=== PATIENT | female | born 1975 | race Caucasian/White ===

== ENCOUNTER 2020-05-20 10:43 | Emergency (ER) | payer OTHER, SELFPAY ==
[2020-05-20 10:56] VITALS: BP 127/83; PULSE 87; RESP 20; TEMP 36.6; O2SAT 98
--- NOTE | 2020-05-20 11:07 | ED.ANXIETY ---
HPI - Anxiety General Chief Complaint: Anxiety Stated Complaint: anxiety Source: patient Mode of arrival: ambulatory Limitations: no limitations History of Present Illness HPI narrative: Patient is a 45-year-old female who presents complaining of anxiety and restlessness starting this a.m. She reports she has a history of anxiety and has had for 30+ years. She reports she takes multiple antianxiety/antidepressants. She reports taking 1.5 mg of lorazepam prior to arrival. She reports a fluttering and tingling sensation throughout her body and mild shortness of breath. She reports she had Covid approximately 1 month ago but has been fully recovered. She denies chest pain. She denies all other complaints. MD complaint: anxiety Related Data Home Medications Medication Instructions Recorded Confirmed bupropion HCl 150 mg PO DAILY 05/20/20 05/20/20 citalopram 40 mg DAILY 05/20/20 05/20/20 hydroxyzine pamoate 25 mg TID 05/20/20 05/20/20 lorazepam 1 mg BID 05/20/20 05/20/20 Allergies Allergy/AdvReac Type Severity Reaction Status Date / Time No Known Allergies Allergy Verified 05/20/20 11:03 Review of Systems Review of Systems: Narrative: CONSTITUTIONAL: Denies fever, chills, or sweats. EYES: Denies visual changes, redness, or discharge. ENT: Denies rhinorrhea, congestion, sore throat, or otalgia. CARDIOVASCULAR: Denies chest pain, palpitations, or edema. RESPIRATORY: Denies cough or dyspnea. GASTROINTESTINAL: Denies abdominal pain, nausea, vomiting, or diarrhea. GENITOURINARY: Denies dysuria or hematuria. SKIN: Denies rash or itching. MUSCULOSKELETAL: Denies back pain, joint pain, or myalgia. NEUROLOGIC: Denies headache, numbness, dizziness, or weakness. Reports a generalized fluttery and tingling feeling PSYCHIATRIC: Reports anxiety. [facility] Past Medical History Medical History Abnormal uterine bleeding Anemia Anxiety Cervical cancer Exercise-induced asthma GBS (group B streptococcus) infection Surgical History Surgical History H/O dilation and curettage H/O tubal ligation H/O: History of bladder suspension procedure History of hysterectomy Hx of cholecystectomy Family History Family History (Updated 05/20/20 @ 11:12 by DEEPTHI Nuno) Other Alzheimer's dementia Cancer Diabetes mellitus Social History Social History (Updated 05/20/20 @ 11:12 by DEEPTHI Nuno) Smoking status: Current every day smoker Tobacco type: cigarettes Alcohol intake: current Alcohol use details: Occasional Substance use: never Living arrangements: with family Gender identity (if verbalized by the patient): Female Exam Narrative: Exam Narrative: GENERAL: Well-appearing, well-nourished, and in no acute distress. HEAD: Normocephalic, atraumatic. EYES: EOMI. No redness or drainage. Conjunctiva are normal. ENT: Mucous membranes pink and moist. CHEST: No respiratory distress. Clear to auscultation. HEART: Regular rate and rhythm. No murmur appreciated. Normal peripheral pulses. EXTREMITIES: Normal range of motion. No edema. SKIN: Warm, dry, no rash. NEURO: No focal deficits. Alert and oriented x3. Gait steady. PSYCH: Normal affect. No signs of depression or anxiety. Course Vital Signs Vital signs: Vital Signs Temperature 36.6 C 05/20/20 10:56 Pulse Rate 87 05/20/20 10:56 Respiratory Rate 20 05/20/20 10:56 Blood Pressure 127/83 05/20/20 10:56 Pulse Oximetry 98 05/20/20 10:56 Temperature 36.6 C 05/20/20 10:56 Pulse Rate 87 05/20/20 10:56 Respiratory Rate 20 05/20/20 10:56 Blood Pressure 127/83 05/20/20 10:56 Pulse Oximetry 98 05/20/20 10:56 Reviewed-patient is informed that they may have pre-hypertension or hypertension based on a blood pressure reading. I recommend the patient call the primary care provider listed on th
--- NOTE | 2020-05-20 11:11 | ECG_ITS ---
Measurements Intervals [place] Rate: 72 P: 54 [place]: 178 QRS: 53 QRSD: 81 T: 52 QT: 363 QTc: 400 Interpretive Statements SINUS RHYTHM RSR' IN V1 OR V2, CONSIDER RIGHT VENTRICULAR HYPERTROPHY OR RIGHT VCD BORDERLINE ECG Electronically Signed On 05-20-2020 12:00:04 [employer] by Jasmeet Cerda D.O.
== END 2020-05-20 11:29 | disposition home or self-care (01) ==
PROVIDERS: Emergency Provider Nurse Practitioner; PCP Nurse Practitioner Family
DX: F41.9 Anxiety disorder, unspecified (principal); F17.210 Nicotine dependence, cigarettes, uncomplicated; J45.990 Exercise induced bronchospasm; Z85.41 Personal history of malignant neoplasm of cervix uteri
CPT/HCPCS: 93005; 99213; G0463

== ENCOUNTER 2020-06-25 10:41 | Outpatient (CLI) | payer OTHER, SELFPAY ==
--- NOTE | ~2020-06-25 | XR_ITS ---
EXAMINATION: XR hip RT min 2V DATE: 06/25/2020 11:05 INDICATION: Right hip pain. TECHNIQUE: 3 views of right hip were obtained. COMPARISON: None. FINDINGS: There is lumbar dextroscoliosis and at least moderate spondylosis. No fracture. There is se eva right hip osteoarthritis. IMPRESSION: 1. Severe right hip osteoarthritis. Reviewed, dictated and finalized at location A. ESCORT
== END 2020-06-25 10:42 | disposition home or self-care (01) ==
PROVIDERS: PCP Nurse Practitioner Family; Visit Provider Nurse Practitioner Family
DX: M25.551 Pain in right hip (principal); M16.11 Unilateral primary osteoarthritis, right hip
CPT/HCPCS: 73502

== ENCOUNTER 2020-07-16 11:39 | Outpatient (CLI) | payer OTHER, SELFPAY ==
--- NOTE | ~2020-07-16 | XR_ITS ---
EXAMINATION: XR chest 2V DATE: 07/16/2020 12:02 INDICATION: Asthma. Preop. TECHNIQUE: Frontal and lateral views of the chest were obtained. COMPARISON: Chest 2 views 04/13/2017 FINDINGS: There is mild scarring at the lung apices. Calcified right lung nodules are consistent with old granulomatous disease. No pleural effusion or pneumothorax. The heart size is normal. There are surgical clips in the abdomen. IMPRESSION: 1. Mild scarring at the lung apices. Reviewed, dictated and finalized at location A. TOR CARETAKER
== END 2020-07-16 11:40 | disposition home or self-care (01) ==
LOC: ANHIMG 11:45
PROVIDERS: PCP Nurse Practitioner Family; Visit Provider Nurse Practitioner Family
DX: Z01.818 Encounter for other preprocedural examination (principal); R91.8 Other nonspecific abnormal finding of lung field
CPT/HCPCS: 71046

== ENCOUNTER 2020-10-02 10:09 | Outpatient (CLI) | payer OTHER, SELFPAY ==
[2020-10-02 11:37] LABS: Basophils Percent Auto 0.4 % (0.2-1.2); Eosinophils Absolute Auto 0.1 K/mm3 (0-0.3); Eosinophils Percent Auto 0.8 % (0-4.4); Hematocrit 40.1 % (37.0-47.0); Hemoglobin 13.4 g/dL (12.0-15.0); Immature Granulocyte Absolute 0.03 K/mm3 (0.00-0.031); Immature Granulocyte Percent A 0.3 % (0-0.5); Lymphocytes Absolute Auto 2.37 K/mm3 (0.9-3.2); Lymphocytes Percent Auto 23.9 % (18.3-44.2); Mean Corpuscular HGB Conc 33.4 g/dl (32-36); Mean Corpuscular Hemoglobin 29.8 pg (26-34); Mean Corpuscular Volume 89.3 fl (80-100); Mean Platelet Volume 9.5 fl (7.4-10.4); Monocytes Absolute Auto 0.7 K/mm3 (0.1-0.6); Monocytes Percent Auto 7.3 % (2.6-8.5); Neutrophils Absolute Auto 6.7 K/mm3 (1.3-6.7); Neutrophils Percent Auto 67.3 % (45.5-73.1); Platelet Count Result 337 k/mm3 (150-375); Red Blood Count 4.49 M/mm3 (4.2-5.4); Red Cell Distribution Width 12.3 % (11.5-14.5); White Blood Count 9.9 K/mm3 (4.5-10.0)
[2020-10-02 11:46] LABS: Albumin Level 4.6 g/dL (3.5-5.1); Estimated Glomerular Filt Rate > 60; Glucose 96 mg/dL (65-105)
[2020-10-02 11:51] LABS: Urine Cotinine NEGATIVE
[2020-10-02 13:30] LABS: Hemoglobin A1C 5.3 % (<5.7)
== END 2020-10-02 10:10 | disposition home or self-care (01) ==
PROVIDERS: PCP Nurse Practitioner Family; Visit Provider Orthopaedic Surgery
DX: M16.11 Unilateral primary osteoarthritis, right hip (principal); Z01.818 Encounter for other preprocedural examination
CPT/HCPCS: 80307; 81479; 82040; 82565; 82947; 83036; 85025; 86850; 86870; 86880; 86900; 86901; 86902; 86970; 86971; 86977

== ENCOUNTER → 2020-10-05 01:56 | Outpatient (CLI) | payer OTHER, SELFPAY ==
[2020-10-05 19:55] LABS: SARS-CoV-2 RNA PCR Negative
== END ==
PROVIDERS: PCP Nurse Practitioner Family; Visit Provider Orthopaedic Surgery
DX: Z01.812 Encounter for preprocedural laboratory examination (principal); Z20.822 Contact with and (suspected) exposure to COVID-19
CPT/HCPCS: C9803; U0003; U0005

== ENCOUNTER 2020-11-10 11:57 | Emergency (ER) | payer OTHER, SELFPAY ==
[2020-11-10 12:07] VITALS: BP 132/67; PULSE 96; RESP 18; TEMP 37.1; O2SAT 99
[2020-11-10 12:09] VITALS: BP 132/67; PULSE 96; RESP 18; TEMP 37.1; O2SAT 99
--- NOTE | 2020-11-10 12:25 | ED.ANXIETY ---
HPI - Anxiety General Chief Complaint: Anxiety Stated Complaint: sweats,chills, rapid heartbeat Time Seen by Provider: 11/10/20 12:07 Source: patient and RN notes reviewed Mode of arrival: ambulatory Limitations: no limitations History of Present Illness HPI narrative: Patient presents today complaining of increased anxiety, headache, sweats and chills since yesterday. Sweats and chills have resolved. Patient was discharged from the hospital 5 days ago after hip replacement by Dr. Rinaldi at [facility]. She is currently taking Eliquis as DVT prophylaxis. She denies chest pain, shortness of breath, or swelling, redness, or pain in her bilateral calves, ankles, feet. Patient has severe anxiety and takes multiple medications for this. She has not been taking her lorazepam of the last several days due to a warning on her discharge instructions to not mix her lorazepam and her pain medication. She is unsure if the symptoms she is experiencing is due to her anxiety or may be a possible blood clot. She has not called her doctor to notify of symptoms. Related Data Home Medications Medication Instructions Recorded Confirmed bupropion HCl 150 mg PO DAILY 05/20/20 11/10/20 citalopram 40 mg PO QAM 05/20/20 11/10/20 lorazepam 1 mg PO PRN PRN 05/20/20 11/10/20 acetaminophen [Tylenol Arthritis 1,300 mg PO PRN PRN 10/02/20 11/10/20 Pain] rosuvastatin 5 mg PO QPM 10/02/20 11/10/20 oxycodone 11/10/20 quetiapine 50 mg HS 11/10/20 11/10/20 Allergies Allergy/AdvReac Type Severity Reaction Status Date / Time iohexol Allergy Hives Verified 10/02/20 11:13 [From contrast - CT, X-RAY] Review of Systems Review of Systems: Narrative: CONSTITUTIONAL: Denies body aches, fever. +chills and sweats-resolved EYES: Denies visual changes, redness, or discharge. ENT: Denies rhinorrhea, congestion, sore throat, or otalgia. CARDIOVASCULAR: Denies chest pain, palpitations, or edema. RESPIRATORY: Denies cough or dyspnea. GASTROINTESTINAL: Denies abdominal pain, nausea, vomiting, or diarrhea. GENITOURINARY: Denies dysuria or hematuria. SKIN: Denies rash, itching, or wounds. MUSCULOSKELETAL: Denies back pain, joint pain, or myalgia. NEUROLOGIC: Denies numbness, tingling, or weakness. +headacehe PSYCH: +anxiety PMFSH Past Medical History Medical History Abnormal uterine bleeding Anemia Anxiety Cervical cancer Exercise-induced asthma GBS (group B streptococcus) infection Surgical History Surgical History H/O dilation and curettage H/O tubal ligation H/O: History of bladder suspension procedure History of hysterectomy Hx of cholecystectomy Family History Family History Other Alzheimer's dementia Cancer Diabetes mellitus Social History Social History Years smoked: 15 Smoking status: Former smoker Tobacco type: cigarettes Smoking end date: 05/17/17 Additional smoking assessment comments: STATES TOOK A COUPLE HITS FROM [employer] LAST NIGHT.INST.NO NICTO Alcohol intake: current Substance use: never Substance use type: tranquilizers Gender identity (if verbalized by the patient): Female Spiritual care concerns: No Comments At time of signature, I have reviewed and agree with nursing past medical, surgical, social and family history unless otherwise noted. Please see nursing chart for further information. There is no relevant family history pertinent to the presenting complaint Exam Narrative: Exam Narrative: GENERAL: Well-appearing, well-nourished, and in no acute distress. HEAD: Normocephalic, atraumatic. EYES: EOMI. No redness or drainage. Conjunctivae normal. ENT: Mucous membranes pink and moist. NECK: Normal AROM. Supple. No lymph
== END 2020-11-10 12:30 | disposition home or self-care (01) ==
PROVIDERS: Emergency Provider Nurse Practitioner; PCP Nurse Practitioner Family
DX: F41.9 Anxiety disorder, unspecified (principal); Z87.891 Personal history of nicotine dependence; J45.990 Exercise induced bronchospasm; Z85.3 Personal history of malignant neoplasm of breast; Z96.649 Presence of unspecified artificial hip joint
CPT/HCPCS: 99211; G0463